=== PATIENT | male | born 1965 | race Hispanic/Latino ===

== ENCOUNTER 2016-08-31 23:31 | Emergency (ER) | payer OTHER ==
[2016-08-31 23:51] VITALS: O2SAT 98
--- NOTE | 2016-09-01 00:08 | ED PDOC ---
Upper Extremity Pain/Injury Time Seen by Provider: 09/01/16 00:06 Chief Complaint (Nursing): Upper Extremity Problem/Injury Chief Complaint (Provider): RIGHT HAND PAIN History Per: Patient (51 Y/O MALE HERE WITH RIGHT HAND PAIN NOTED X 2 DAYS. PATIENT STATES HE WAS PAINTING EXCESSIVELY RECENTLY AND NOTES SWELLING AND PAIN SECOND FINGER. UNSURE OF INJURY TO HAND. RIGHT HAND DOMINANT.) Past Medical History Reviewed: Historical Data, Nursing Documentation, Vital Signs Vital Signs: Last Vital Signs Temp 97.0 F L 08/31/16 23:46 Pulse 59 L 08/31/16 23:46 Resp 17 08/31/16 23:46 BP 132/100 H 08/31/16 23:46 Pulse Ox 98 08/31/16 23:46 - Family History Family History: States: No Known Family Hx - Home Medications Home Medications: Ambulatory Orders Medication Instructions Recorded Ibuprofen [Motrin] 600 mg PO Q8 PRN #21 tab 09/01/16 - Allergies Allergies/Adverse Reactions: Allergies Allergy/AdvReac Type Severity Reaction Status Date / Time No Known Allergies Allergy Verified 08/31/16 23:50 Review of Systems ROS Statement: Except As Marked, All Systems Reviewed And Found Negative Musculoskeletal: Positive for: Hand Pain Physical Exam - Reviewed Nursing Documentation Reviewed: Yes Vital Signs Reviewed: Yes - Physical Exam Appears: Positive for: Well, Non-toxic, No Acute Distress Head Exam: Positive for: ATRAUMATIC, NORMAL INSPECTION, NORMOCEPHALIC Skin: Positive for: Normal Color, Warm, DRY Eye Exam: Positive for: EOMI, Normal appearance, PERRL ENT: Positive for: Normal ENT Inspection Neck: Positive for: Normal, Painless ROM Cardiovascular/Chest: Positive for: Regular Rate, Rhythm Respiratory: Positive for: CNT, Normal Breath Sounds Gastrointestinal/Abdominal: Positive for: Normal Exam, Bowel Sounds, Soft Back: Positive for: Normal Inspection Extremity: Positive for: Normal ROM, Tenderness, Swelling (RIGHT HAND AT MCP WITH SWELLING OF DIGIT. NO ERYTHEMA/DEFORMITY NOTED.) Neurologic/Psych: Positive for: Alert, Oriented - ECG O2 Sat by Pulse Oximetry: 98 - Progress ED Course And Treament: MOTRIN 600 MG X 1 DOSE XRY OF HAND: NEG FOR INJURY/FX PLACED IN METACARPAL SPLINT. Disposition - Clinical Impression Clinical Impression: Hand pain - Patient ED Disposition Is Patient to be Admitted: No - Disposition Referrals: Richard Chicas MD [Medical Doctor] - [facility] [place] [Outside] Disposition: Routine/Home Disposition Time: 00:38 Condition: FAIR Prescriptions: Ibuprofen [Motrin] 600 mg PO Q8 PRN #21 tab PRN Reason: Pain, Moderate (4-7) Instructions: Arthritis (ED)
[2016-09-01 01:31] VITALS: BP 129/72; PULSE 63; RESP 18; TEMP 98
--- NOTE | 2016-09-01 11:07 | RAD ---
PROCEDURE: Right hand Radiographs. HISTORY: PAIN AT SECOND MCP COMPARISON: None. FINDINGS: BONES: Normal. No fracture. JOINTS: Normal. No dislocation. SOFT TISSUES: Normal. OTHER FINDINGS: None. IMPRESSION: No acute findings related to/accounting for the clinical presentation.
== END 2016-09-01 01:40 | disposition home or self-care (01) ==
LOC: H.ER 23:31
DX: M79.641 Pain in right hand (principal)

== ENCOUNTER 2016-09-06 07:35 | Emergency (ER) | payer OTHER ==
[2016-09-06 07:38] VITALS: BP 138/100; PULSE 68; TEMP 97.9; O2SAT 100
[2016-09-06 07:39] VITALS: BMI 28.8
--- NOTE | 2016-09-06 07:58 | ED PDOC ---
Upper Extremity Pain/Injury Time Seen by Provider: 09/06/16 07:51 Chief Complaint (Nursing): Finger,Hand,&Wrist Chief Complaint (Provider): Follow up History Per: Patient History/Exam Limitations: no limitations Onset/Duration Of Symptoms: Days Current Symptoms Are (Timing): Gone Now Severity: None Additional Complaint(s): Patient is a 51 year old male, who has a history of Arthritis, presents to the ED for a follow up status post visiting the ED for a right hand injury x6 days ago. Patient was seen in ED 6 days ago complaining of R hand pain secondary to overuse. Xray was negative for fracture. Patient was placed in splint and instructed to rest, ice and take motrin. Patient reports that he has been doing better. He reports that he got the splint wet in the shower today and therefore presented for evaluation. He denies pain, fever, or decreased ROM. He reports decreased swelling. PMD: none Past Medical History Reviewed: Historical Data, Nursing Documentation, Vital Signs Vital Signs: Last Vital Signs Temp 97.9 F 09/06/16 07:38 Pulse 68 09/06/16 07:38 Resp BP 138/100 H 09/06/16 07:38 Pulse Ox 100 09/06/16 07:38 - Medical History PMH: Arthritis - Family History Family History: States: No Known Family Hx - Home Medications Home Medications: Ambulatory Orders Medication Instructions Recorded Ibuprofen [Motrin] 600 mg PO Q8 PRN #21 tab 09/01/16 - Allergies Allergies/Adverse Reactions: Allergies Allergy/AdvReac Type Severity Reaction Status Date / Time No Known Allergies Allergy Verified 09/06/16 07:46 Review of Systems ROS Statement: Except As Marked, All Systems Reviewed And Found Negative Constitutional: Negative for: Fever, Chills Cardiovascular: Negative for: Chest Pain Respiratory: Negative for: Cough Gastrointestinal: Negative for: Nausea, Vomiting, Diarrhea, Constipation Musculoskeletal: Negative for: Hand Pain Skin: Negative for: Rash, Lesions Neurological: Negative for: Weakness, Numbness Physical Exam - Reviewed Nursing Documentation Reviewed: Yes Vital Signs Reviewed: Yes - Physical Exam Appears: Positive for: Well, Non-toxic, No Acute Distress Head Exam: Positive for: ATRAUMATIC, NORMAL INSPECTION, NORMOCEPHALIC Skin: Positive for: Normal Color, Warm Eye Exam: Positive for: Normal appearance, EOMI Pulses-Radial (L): 2+ Pulses-Radial (R): 2+ Extremity: Positive for: Normal ROM, Swelling (mild swelling to right 2nd and 3rd digits (improved per patient). Non-tender, Normal ROM and strength. No redness or erythema. ). Negative for: Deformity Neurologic/Psych: Positive for: Alert, Oriented - ECG O2 Sat by Pulse Oximetry: 100 Medical Decision Making Medical Decision Making: Time: Impression: Follow up for Arthritis Plan: Patient advised to continue motrin as needed and limit excessive usage of his right hand. Discussed results and plan with patient who expresses understanding. He will follow-up with PMD. Counseling was provided regarding the diagnosis and prognosis. All questions answered and there is agreement with the plan to discharge home with instructions. Patient stable for discharge. Return if symptoms persist or worsen. Scribe Attestation: Documented by Isaias Paige acting as a scribe for Aixa uKhn MD. Scribe Attestation: All medical record entries made by the Scribe were at my direction and personally dictated by me. I have reviewed the chart and agree that the record accurately reflects my personal performance of the history, physical exam, medical decision making, and the department course for this patient. I have also personally directed, reviewed, and agree with the discharge instructions and disposition. Disposition - Clinical Impression Clinical Impression: Visit for wound check - Patient ED Disposition Is Patient to be Admitted: No Counseled Patient/Family Regarding: Studies Performed, Diagnosis - Disposition Disposition: Routine/Home Disposition Time: 08:02 Condition: GOOD Additional Instructions: Avoid overuse or overexertion. Motrin for pain. Ice as needed for arthritis flare. Return to ED if condition worsens. Instructions: Arthritis (ED)
== END 2016-09-06 08:17 | disposition home or self-care (01) ==
LOC: H.ER 07:35
DX: Z51.89 Encounter for other specified aftercare (principal)

== ENCOUNTER 2017-03-13 08:42 | Emergency (ER) | payer OTHER ==
[2017-03-13 08:46] VITALS: TEMP 97.8
[2017-03-13 08:47] VITALS: BMI 28.2
[2017-03-13] MEDS ORDERED: Iohexol 240 (50 ml) PO ONE (09:21)
[2017-03-13 09:58] LABS: BASO % 0.5 % (0.0-2.0); EOS # 0.1 K/uL (0.0-0.7); HEMATOCRIT 38.8 % (35.0-51.0); LYMPH # 2.3 K/uL (1.0-4.3); LYMPH % 31.8 % (20.0-40.0); MEAN CELL VOLUME 91.3 fl (80.0-94.0); MEAN CORPUSCULAR HEMOGLOBIN 32.2 pg (27.0-31.0); MEAN CORPUSCULAR HGB CONC 35.2 g/dL (33.0-37.0); MEAN PLATELET VOLUME 9.1 fl (7.2-11.7); MONO # 0.5 K/uL (0.0-0.8); MONO % 7.2 % (0.0-10.0); NEUT # 4.2 K/uL (1.8-7.0); NEUT % 58.5 % (50.0-75.0); NRBC % 0.1 % (0.0-0.0); WHITE BLOOD COUNT 7.1 K/uL (4.8-10.8)
[2017-03-13 10:06] LABS: ALB/GLOB RATIO 1.4 (1.0-2.1); ALKALINE PHOSPHATASE 44 U/L (38-126); ALT/SGPT 52 U/L (21-72); AST/SGOT 31 U/L (17-59); BILIRUBIN,TOTAL 0.3 mg/dl (0.2-1.3); BLOOD UREA NITROGEN 15 mg/dl (9-20); CALCIUM 9.6 mg/dL (8.4-10.2); CARBON DIOXIDE 25 mmol/L (22-30); CHLORIDE 104 mmol/L (98-107); GFR AFRICAN-AMERICAN > 60; GLUCOSE,RANDOM 95 mg/dL (75-110); POTASSIUM 4.2 MMOL/L (3.6-5.0); SODIUM 139 mmol/l (132-148); TOTAL PROTEIN 7.2 G/DL (6.3-8.2)
--- NOTE | 2017-03-13 10:09 | ED PDOC ---
HPI: Abdomen Time Seen by Provider: 03/13/17 09:04 Chief Complaint (Nursing): Abdominal Pain Chief Complaint (Provider): Abdominal Pain History Per: Patient History/Exam Limitations: no limitations Onset/Duration Of Symptoms: Days (x2) Current Symptoms Are (Timing): Still Present Additional Complaint(s): Elie Cagle is a 52 year old, with no previous medical history, who presents to the ED complaining of left sided abdominal pain without associated nausea, vomiting, diarrhea, or urinary problems. Pain began 2 days ago while renovating his home. He believes he strained something while moving and lifting objects. Patient also denies fever, rash, dizziness. PMD: Family Provider Past Medical History Reviewed: Historical Data, Nursing Documentation, Vital Signs Vital Signs: Last Vital Signs Temp 97.8 F 03/13/17 08:46 Pulse 69 03/13/17 08:46 Resp 20 03/13/17 08:46 BP 139/89 03/13/17 08:46 Pulse Ox 97 03/13/17 10:55 - Medical History PMH: Arthritis - Surgical History Other surgeries: Hydrocele repair - Family History Family History: States: Unknown Family Hx - Social History Current smoker - smoking cessation education provided: Yes (Some days) Alcohol: Occasional - Home Medications Home Medications: Ambulatory Orders Medication Instructions Recorded Ibuprofen [Motrin] 600 mg PO Q8 PRN #21 tab 09/01/16 Naproxen [Naprosyn] 500 mg PO BID PRN #14 tablet 03/13/17 - Allergies Allergies/Adverse Reactions: Allergies Allergy/AdvReac Type Severity Reaction Status Date / Time No Known Allergies Allergy Verified 03/13/17 09:00 Review of Systems ROS Statement: Except As Marked, All Systems Reviewed And Found Negative Constitutional: Negative for: Fever Gastrointestinal: Positive for: Abdominal Pain (left sided). Negative for: Nausea, Vomiting, Diarrhea Genitourinary Male: Negative for: Dysuria, Frequency, Incontinence, Hematuria Skin: Negative for: Rash Physical Exam - Reviewed Nursing Documentation Reviewed: Yes Vital Signs Reviewed: Yes - Physical Exam Appears: Positive for: Well, Non-toxic, No Acute Distress Head Exam: Positive for: ATRAUMATIC, NORMOCEPHALIC Skin: Positive for: Normal Color, Warm, Dry Eye Exam: Positive for: EOMI, Normal appearance, PERRL Neck: Positive for: Normal, Painless ROM, Supple Cardiovascular/Chest: Positive for: Regular Rate, Rhythm. Negative for: Murmur Respiratory: Positive for: Normal Breath Sounds. Negative for: Respiratory Distress Gastrointestinal/Abdominal: Positive for: Bowel Sounds, Soft, Tenderness (Mild LUQ tenderness). Negative for: Guarding, Rebound Back: Positive for: Normal Inspection. Negative for: L CVA Tenderness, R CVA Tenderness, Vertebral Tenderness Extremity: Positive for: Normal ROM. Negative for: Pedal Edema, Deformity Neurologic/Psych: Positive for: Alert, Oriented. Negative for: Motor/Sensory Deficits - Laboratory Results Result Diagrams: 03/13/17 09:36 03/13/17 09:36 - ECG O2 Sat by Pulse Oximetry: 97 (RA) Pulse Ox Interpretation: Normal Medical Decision Making Medical Decision Making: Time: 9:21 Initial Impression: Abdominal pain Initial Plan: --CT Abdomen and Pelvis PO & IV Contrast --CMP --CBC w/ differential --Lipase --Ketolorac 15 mg IVP --Iohexol 50 ml PO --Urinalysis --reevaluation labs reviewed, unremarkable Accession No. : [id number] Patient Name / ID : ANAND GRISSOM / [id number] Exam Date : 03/13/2017 11:12:32 ( Approved ) Study Comment : Sex / Age : M / 52Y Creator : Lina Penaloza MD Dictator : Lina Penaloza MD Freelance Programmer/App Developer : Display Trimmer : Lina Penaloza MD Approver2 : Report Date : 03/13/2017 12:39:59 My Comment : PROCEDURE: CT Abdomen and Pelvis with contrast HISTORY: Left abdominal pain COMPARISON: None. TECHNIQUE: CT scan of the abdomen and pelvis was performed after administration of intravenous contrast. Oral contrast was administered. Coronal and sagittal reformatted images were obtained. Contrast dose: 95 cc Omnipaque 300 Radiation dose: Total exam DLP = 1063.52 mGy-cm. This CT exam was performed using one or more of the following dose reduction techniques: Automated exposure control, adjustment of the mA and/or kV according to patient size, and/or use of iterative reconstruction technique. FINDINGS: LOWER THORAX: There is dependent atelectasis in the lower lobes. LIVER: There is mild hepatomegaly and diffuse fatty infiltration in the liver. No focal mass or intrahepatic biliary ductal dilatation. GALLBLADDER AND BILE DUCTS: There are no calcified gallstones. PANCREAS: The pancreas is normal in size and there is homogeneous enhancement without ductal dilatation or mass. SPLEEN: The spleen is normal in size and there is homogeneous enhancement without focal lesion. ADRENALS: Both adrenal glands are normal in size without discrete nodule. KIDNEYS AND URETERS: Both kidneys are normal in size and there is homogeneous enhancement without hydronephrosis or focal mass. There is a 2.0 cm exophytic simple cyst in the interpolar region of the right kidney. VASCULATURE: There are atherosclerotic aortoiliac calcifications. No aortic aneurysm. BOWEL: The small bowel loops are normal in caliber. There is moderate amount of stool in the colon. No bowel dilatation or obstruction. APPENDIX: Normal appendix. PERITONEUM: No free fluid. No free air. LYMPH NODES: Unremarkable. No enlarged lymph nodes. BLADDER: Partially decompressed REPRODUCTIVE: The prostate gland is normal in size. There a central coarse calcifications. BONES: No acute fracture. There is mild multilevel degenerative disc disease OTHER FINDINGS: There are bilateral small fat containing inguinal hernias. IMPRESSION: 1. No acute abdominal or pelvic abnormality. 2. Mild hepatomegaly and hepatic steatosis. DC from ED, followup PMD if pain persists. Scribe Attestation: Documented Herb Cheng acting as a scribe for Neil Rubio DO. Scribjada Attestation: All medical record entries made by the Scribe were at my direction and personally dictated by me. I have reviewed the chart and agree that the record accurately reflects my personal performance of the history, physical exam, medical decision making, and the department course for this patient. I have also personally directed, reviewed, and agree with the discharge instructions and disposition. Disposition - Clinical Impression Clinical Impression: Abdominal pain - Patient ED Disposition Is Patient to be Admitted: No Counseled Patient/Family Regarding: Studies Performed, Diagnosis, Need For Followup, Rx Given - Disposition Referrals: Cristine Polanco MD [Staff Provider] - Disposition: Routine/Home Disposition Time: 12:52 Condition: STABLE Additional Instructions: Followup with your doctor if pain persists. Recommend colonoscopy for any patient above age 50 in the [place]. Prescriptions: Naproxen [Naprosyn] 500 mg PO BID PRN #14 tablet PRN Reason: Pain, Moderate (4-7) Instructions: Acute Abdominal Pain (ED)
[2017-03-13 10:13] LABS: RBC URINE < 1 /hpf (0-3); URINE BACTERIA RARE (<OCC); URINE BILIRUBIN NEGATIVE (NEGATIVE); URINE BLOOD NEGATIVE (NEGATIVE); URINE COLOR STRAW (YELLOW); URINE GLUCOSE (UA) NEG (Normal); URINE KETONE NEGATIVE (NEGATIVE); URINE LEUKOCYTE ESTERASE NEG Leu/uL (Negative); URINE PROTEIN NEGATIVE (NEGATIVE); URINE UROBILINOGEN 0.2-1.0 mg/dL (0.2-1.0); WBC URINE < 1 /hpf (0-5)
[2017-03-13 11:13] LABS: LIPASE 116 U/L (23-300)
[2017-03-13] MEDS ORDERED: Sodium Chloride 0.9% 50 ML IV ONE (11:15)
[2017-03-13] MEDS ORDERED: Iohexol 300 100 ML IJ ONE (11:15)
--- NOTE | 2017-03-13 12:41 | CT ---
PROCEDURE: CT Abdomen and Pelvis with contrast HISTORY: Left abdominal pain COMPARISON: None. TECHNIQUE: CT scan of the abdomen and pelvis was performed after administration of intravenous contrast. Oral contrast was administered. Coronal and sagittal reformatted images were obtained. Contrast dose: 95 cc Omnipaque 300 Radiation dose: Total exam DLP = 1063.52 mGy-cm. This CT exam was performed using one or more of the following dose reduction techniques: Automated exposure control, adjustment of the mA and/or kV according to patient size, and/or use of iterative reconstruction technique. FINDINGS: LOWER THORAX: There is dependent atelectasis in the lower lobes. LIVER: There is mild hepatomegaly and diffuse fatty infiltration in the liver. No focal mass or intrahepatic biliary ductal dilatation. GALLBLADDER AND BILE DUCTS: There are no calcified gallstones. PANCREAS: The pancreas is normal in size and there is homogeneous enhancement without ductal dilatation or mass. SPLEEN: The spleen is normal in size and there is homogeneous enhancement without focal lesion. ADRENALS: Both adrenal glands are normal in size without discrete nodule. KIDNEYS AND URETERS: Both kidneys are normal in size and there is homogeneous enhancement without hydronephrosis or focal mass. There is a 2.0 cm exophytic simple cyst in the interpolar region of the right kidney. VASCULATURE: There are atherosclerotic aortoiliac calcifications. No aortic aneurysm. BOWEL: The small bowel loops are normal in caliber. There is moderate amount of stool in the colon. No bowel dilatation or obstruction. APPENDIX: Normal appendix. PERITONEUM: No free fluid. No free air. LYMPH NODES: Unremarkable. No enlarged lymph nodes. BLADDER: Partially decompressed REPRODUCTIVE: The prostate gland is normal in size. There a central coarse calcifications. BONES: No acute fracture. There is mild multilevel degenerative disc disease OTHER FINDINGS: There are bilateral small fat containing inguinal hernias. IMPRESSION: 1. No acute abdominal or pelvic abnormality. 2. Mild hepatomegaly and hepatic steatosis.
[2017-03-13 13:11] VITALS: BP 158/95; PULSE 52; RESP 16; O2SAT 100
== END 2017-03-13 13:02 | disposition home or self-care (01) ==
LOC: H.ER 08:42
DX: R10.9 Unspecified abdominal pain (principal); K76.0 Fatty (change of) liver, not elsewhere classified
CPT/HCPCS: 74177; 80053; 81003; 83690; 85025; 96374; 99283; J1885; Q9966; Q9967

== ENCOUNTER 2018-01-27 03:16 | Emergency (ER) | payer OTHER ==
[2018-01-27 03:16] VITALS: BMI 28.2
[2018-01-27 03:42] VITALS: BP 142/89; PULSE 73; RESP 18; TEMP 98.2; O2SAT 97
[2018-01-27] MEDS ORDERED: DiphenhydrAMINE 50 mg/ml Inj IM STA (03:44)
[2018-01-27] MEDS ORDERED: DiphenhydrAMINE 50 mg/ml Inj ONE (03:51)
--- NOTE | 2018-01-27 03:51 | ED PDOC ---
HPI: Skin/Bite Injury Time Seen by Provider: 01/27/18 03:30 Chief Complaint (Nursing): Abnormal Skin Integrity Chief Complaint (Provider): Rash History Per: Patient History/Exam Limitations: no limitations Onset/Duration Of Symptoms: Days (x1 week ago) Additional Complaint(s): 53 year old male presents to the ED for evaluation of a rash. Patient states that eight days ago he was pulling weeds in his yard, and then the next night, he developed a pruritic rash to his arms which progressively spread to his body. He states he has been using hydrocortisone cream, calamine lotion, and oral bendaryl without relief. Otherwise, denies fever, pain, and numbness. PMD: none provided Past Medical History Reviewed: Historical Data, Nursing Documentation, Vital Signs Vital Signs: Last Vital Signs Temp 98.2 F 01/27/18 03:38 Pulse 73 01/27/18 03:38 Resp 18 01/27/18 03:38 BP 142/89 01/27/18 03:38 Pulse Ox 97 01/27/18 03:52 - Medical History PMH: Arthritis - Surgical History Surgical History: No Surg Hx - Family History Family History: States: Unknown Family Hx - Home Medications Home Medications: Ambulatory Orders Medication Instructions Recorded Ibuprofen [Motrin] 600 mg PO Q8 PRN #21 tab 09/01/16 Naproxen [Naprosyn] 500 mg PO BID PRN #14 tablet 03/13/17 Cephalexin [cephalexin] 500 mg PO Q6 #28 cap 01/27/18 DiphenhydrAMINE [Benadryl] 1 cap PO Q6 PRN #30 cap 01/27/18 predniSONE [predniSONE Tab] 5 mg PO DAILY #73 tab 01/27/18 - Allergies Allergies/Adverse Reactions: Allergies Allergy/AdvReac Type Severity Reaction Status Date / Time No Known Allergies Allergy Verified 01/27/18 03:32 Review of Systems ROS Statement: Except As Marked, All Systems Reviewed And Found Negative Constitutional: Negative for: Fever, Other (pain) Skin: Positive for: Rash (pruritic) Neurological: Negative for: Numbness Physical Exam - Reviewed Nursing Documentation Reviewed: Yes Vital Signs Reviewed: Yes - Physical Exam Appears: Positive for: No Acute Distress Head Exam: Positive for: ATRAUMATIC, NORMOCEPHALIC Skin: Positive for: Rash (scattered vesicles in linear array throughout entire body but greatest on bilateral upper arms and on left volar forearm there is surrounding erythema to vesicles, which is non-circumferential and without streaking) Eye Exam: Positive for: Normal appearance Pulses-Radial (L): 2+ Pulses-Radial (R): 2+ Neurologic/Psych: Positive for: Alert, Oriented (x3) - ECG O2 Sat by Pulse Oximetry: 97 (RA) Pulse Ox Interpretation: Normal Medical Decision Making Medical Decision Making: Time: 343 Initial Impression: poison leona Initial Plan: --Benadryl 50mg IM --Keflex 500mg PO --Prednisone 40mg PO 344 Patient advised to return to the ED for to [facility] in 48 hours for wound check, but return to the ED immediately if redness worsens or fever develops. Scribe Attestation: Documented by Nicole Campos acting as a scribe for William Amaral PA-C. Provider Scribe Attestation: All medical record entries made by the Scribe were at my direction and personally dictated by me. I have reviewed the chart and agree that the record accurately reflects my personal performance of the history, physical exam, medical decision making, and the department course for this patient. I have also personally directed, reviewed, and agree with the discharge instructions and disposition. Disposition - Clinical Impression Clinical Impression: Rhus dermatitis, Cellulitis - Patient ED Disposition Is Patient to be Admitted: No - Disposition Referrals: [facility] [Outside] [facility] [Outside] Disposition: Routine/Home Disposition Time: 03:45 Condition: IMPROVED Additional Instructions: RETURN TO ED IMMEDIATELY IF REDNESS WORSENS OR FEVER DEVELOPS WITHOUT FAIL RETURN TO ED OR GO TO [facility] IN 2 DAYS FOR WOUND CHECK PRAVEENA MICHEL, thank you for letting us take care of you today. Your provider was José Manuel Villarreal MD and you were treated for RASH. The emergency medical care you received today was directed at your acute symptoms. If you were prescribed any medication, please fill it and take as directed. It may take several days for your symptoms to resolve. Return to the Emergency Department if your symptoms worsen, do not improve, or if you have any other problems. Please contact your doctor or call one of the physicians/clinics you have been referred to that are listed on the Patient Visit Information form that is included in your discharge packet. Bring any paperwork you were given at discharge with you along with any medications you are taking to your follow up visit. Our treatment cannot replace ongoing medical care by a primary care provider outside of the emergency department. Thank you for allowing the [facility] team to be part of your care today. If you had an X-Ray or CT scan: A Radiologist will review the ED reading if any change in treatment is needed we will contact you. If you had a blood, urine, or wound culture: It will take several days for the results, if any change in treatment is needed we will contact you. If you had an STI test: It will take 48 hours for the results. Please call after 1 week if you have not heard back. Prescriptions: Cephalexin [cephalexin] 500 mg PO Q6 #28 cap DiphenhydrAMINE [Benadryl] 1 cap PO Q6 PRN #30 cap PRN Reason: itching or rash predniSONE [predniSONE Tab] 5 mg PO DAILY #73 tab Instructions: Poison Leona, Poison Libby, Poison [place] (DC) Forms: [facility] (Kinyarwanda)
== END 2018-01-27 04:15 | disposition home or self-care (01) ==
LOC: H.ER 03:16
DX: L23.7 Allergic contact dermatitis due to plants, except food (principal); L03.90 Cellulitis, unspecified
CPT/HCPCS: 96372; 99282; J1200

== ENCOUNTER 2018-09-12 08:34 | Emergency (ER) | payer MEDICAID, OTHER ==
[2018-09-12 08:39] VITALS: BMI 28.8
[2018-09-12 08:43] VITALS: BP 160/95; PULSE 66; RESP 20; TEMP 97.8; O2SAT 97
--- NOTE | 2018-09-12 09:39 | ED PDOC ---
Lower Extremity Pain/Injury Time Seen by Provider: 09/12/18 09:07 Chief Complaint (Nursing): Lower Extremity Problem/Injury Chief Complaint (Provider): Lower Extremity Problem/Injury History Per: Patient History/Exam Limitations: no limitations Onset/Duration Of Symptoms: Days Current Symptoms Are (Timing): Still Present Additional Complaint(s): 53 year old male with a past medical history of arthritis who is presenting to the ED for evaluation of left knee pain and swelling ongoing for 1 month. Patient states that there was a bump to left knee ongoing for several months when he bumped his knee and began feeling pain to the area. He reports that bump is gone and admits taking Alieve for pain with minimal relief. He denies any calf pain or pedal edema and offers no other medical complaints at this time. PMD: none provided Past Medical History Reviewed: Historical Data, Nursing Documentation, Vital Signs Vital Signs: Last Vital Signs Temp 97.8 F 09/12/18 08:39 Pulse 66 09/12/18 08:39 Resp 20 09/12/18 08:39 BP 160/95 H 09/12/18 08:39 Pulse Ox 97 09/12/18 08:39 - Medical History PMH: Arthritis - Surgical History Other surgeries: eye surgery - Family History Family History: States: Unknown Family Hx - Social History Current smoker - smoking cessation education provided: Yes Alcohol: Social Drugs: Cannabis - Home Medications Home Medications: Ambulatory Orders Medication Instructions Recorded Ibuprofen [Motrin] 600 mg PO Q8 PRN #21 tab 09/01/16 Naproxen [Naprosyn] 500 mg PO BID PRN #14 tablet 03/13/17 Cephalexin [cephalexin] 500 mg PO Q6 #28 cap 01/27/18 DiphenhydrAMINE [Benadryl] 1 cap PO Q6 PRN #30 cap 01/27/18 predniSONE [predniSONE Tab] 5 mg PO DAILY #73 tab 01/27/18 Naproxen [Naprosyn] 500 mg PO BID PRN #15 tablet 09/12/18 - Allergies Allergies/Adverse Reactions: Allergies Allergy/AdvReac Type Severity Reaction Status Date / Time No Known Allergies Allergy Verified 01/27/18 03:32 Review of Systems ROS Statement: Except As Marked, All Systems Reviewed And Found Negative Musculoskeletal: Positive for: Leg Pain Neurological: Negative for: Weakness, Numbness Physical Exam - Reviewed Nursing Documentation Reviewed: Yes Vital Signs Reviewed: Yes - Physical Exam Appears: Positive for: Non-toxic, No Acute Distress Head Exam: Positive for: ATRAUMATIC, NORMAL INSPECTION, NORMOCEPHALIC Skin: Positive for: Normal Color, Warm, DRY Eye Exam: Positive for: Normal appearance Back: Positive for: Normal Inspection. Negative for: L CVA Tenderness, R CVA Tenderness Extremity: Positive for: Normal ROM. Negative for: Tenderness, Pedal Edema, Calf Tenderness, Deformity, Swelling Neurological/Psych: Positive for: Awake, Alert, Normal Tone, Oriented. Negative for: Motor/Sensory Deficits - ECG O2 Sat by Pulse Oximetry: 97 (RA) Pulse Ox Interpretation: Normal Medical Decision Making Medical Decision Making: Time: 9:22 Plan: --Left Knee X-Ray Copy of XR report given to patient. Scribe Attestation: Documented by Isadora Mahmood, acting as a scribe for Aminta Torres MD. Provider Scribe Attestation: All medical record entries made by the Scribe were at my direction and personally dictated by me. I have reviewed the chart and agree that the record accurately reflects my personal performance of the history, physical exam, medical decision making, and the department course for this patient. I have also personally directed, reviewed, and agree with the discharge instructions and disposition. Disposition - Clinical Impression Clinical Impression: Knee pain - Disposition Referrals: Elie Randle III, MD [Staff Provider] - Disposition: Routine/Home Disposition Time: 11:30 Condition: STABLE Prescriptions: Naproxen [Naprosyn] 500 mg PO BID PRN #15 tablet PRN Reason: Pain, Moderate (4-7) Instructions: Knee Pain Forms: [employer] (Gambian)
--- NOTE | 2018-09-12 11:38 | RAD ---
Date of service: 09/12/2018 PROCEDURE: Left Knee Radiographs. HISTORY: Pain. COMPARISON: None. TECHNIQUE: 2 views obtained. FINDINGS: BONES: Bipartite patella appreciated, a normal variant. There is a subtle lucency at the mid patella which appears vertical but does not extend completely through the patella and is felt to be related to soft tissue overlap. On discussion of this case with referring physician, this patient has no anterior knee pain with patient complaining of medial knee pain. No destructive bony changes are identified throughout the left knee. [place] projection appears unremarkable. JOINTS: Medial compartment joint space narrowing is appreciated more so than on the lateral femorotibial compartment compatible degenerative joint disease, [id number] severity. JOINT EFFUSION: Borderline suprapatellar bursa effusion. OTHER FINDINGS: A small well-circumscribed ovoid calcification in the medial left calf for subcutaneous soft tissues may reflect phlebolith or other heterotopic calcification. IMPRESSION: Bipartite patella identified, a normal variant. Lucency at the mid patella is felt to be artifactual intrinsically as well as based on patient's pain signature which is medial. In particular sun[place] projection appears unremarkable at the patella. Further clinical correlation might. [id number] degenerative joint disease predominantly medial and lateral femorotibial compartments. Findings discussed with Dr. Torres with written down and read back verification 09/12/2018, 11:30 a.m..
== END 2018-09-12 11:43 | disposition home or self-care (01) ==
LOC: H.ER 08:34
DX: M25.562 Pain in left knee (principal); Q74.1 Congenital malformation of knee